=== PATIENT | female | born 1975 | race Caucasian/White ===

== ENCOUNTER 2025-03-16 20:29 | Inpatient (IN) ==
[2025-03-16] MEDS: ONDANSETRON 4 MG/2 ML VIAL IV ONE (21:29)
[2025-03-16 22:21] LABS: Basophils # (Auto) 0.01 K/mcL (0.00-0.30); Basophils % (Auto) 0.2 % (0.0-2.0); Eosinophils # (Auto) 0.02 K/mcL (0.00-0.70); Eosinophils % (Auto) 0.3 % (0.0-7.0); Hematocrit 31.5 % (34.1-44.9); Hemoglobin 8.9 g/dL (11.2-15.7); Lymphocytes # (Auto) 0.83 K/mcL (1.50-4.80); Lymphocytes % (Auto) 14.1 % (15.5-49.0); Mean Corpuscular HGB Conc 28.3 g/dL (31.0-36.0); Monocytes # (Auto) 0.50 K/mcL (0.10-0.90); Monocytes % (Auto) 8.5 % (1.0-12.0); Neutrophils % (Auto) 66.8 % (38.0-78.0); Platelet Count 72 K/mcL (140-440); RBC 3.55 M/mcL (3.59-5.38); WBC 5.9 K/mcL (4.5-11.0)
[2025-03-16 22:32] LABS: Thyroid Stimulating Hormone 8.42 uIU/mL (0.27-5.01)
[2025-03-16 22:41] LABS: ALT/SGPT 11 U/L (<40); AST/SGOT 11 U/L (<32); Albumin 2.6 gm/dL (3.2-5.2); Albumin/Globulin Ratio 0.7 (1.0-2.3); Alkaline Phosphatase 141 U/L (39-117); Anion Gap 10.0 (8.0-16.0); Bilirubin,Total 0.3 mg/dL (0.1-1.0); Blood Urea Nitrogen 45 mg/dL (6-20); Calcium 8.1 mg/dL (8.6-10.4); Carbon Dioxide 24 mmol/L (22-30); Chloride 98 mmol/L (96-108); Globulin 3.8 gm/dL (2.2-3.7); Glucose 470 mg/dL (70-105); Potassium 5.1 mmol/L (3.3-5.1); Sodium 132 mmol/L (133-145)
[2025-03-16] MEDS: INSULIN REGULAR, HUMAN 1 UNIT/0.01 ML UNIT SQ ONE (22:52)
[2025-03-17] MEDS: FUROSEMIDE 100 MG/10 ML VIAL IV ONE (00:44)
[2025-03-17] MEDS: DEXAMETHASONE 10 MG/ML VIAL IV ONE (00:45)
[2025-03-17] MEDS: OSELTAMIVIR PHOSPHATE 75 MG CAPSULE PO ONE (00:45)
[2025-03-17] MEDS ORDERED: DEXTROSE 50% 50 ML VIAL IV PRN (00:50)
[2025-03-17] MEDS ORDERED: DEXTROSE 31 GM ORAL.SUSP PO PRN ×2 (00:50→07:52)
[2025-03-17 03:21] LABS: Bacteria,Urine FEW /hpf (0); Bilirubin,Urine Negative (Negative); Color,Urine Yellow; Glucose,Urine (UA) 500 mg/dL (Negative); Ketones,Urine Negative (Negative); Leukocyte Esterase,Urine Trace /uL (Negative); Mucus,Urine FEW /hpf; PH,Urine 5.5 (5.0-9.0); Protein,Urine >=300 mg/dL (Negative); Specific Gravity,Urine 1.020 (1.000-1.035); Urobilinogen,Urine Normal
[2025-03-17] MEDS: INSULIN LISPRO 1 UNIT/0.01 ML UNIT SQ SCH ×2 (07:09→12:13)
[2025-03-17] MEDS ORDERED: SENNOSIDES 1 TABLET PO PRN (08:15)
[2025-03-17] MEDS ORDERED: MAGNESIUM SULFATE 2 GM/50 ML BAG IV PRN (08:15)
[2025-03-17] MEDS ORDERED: POTASSIUM CHLORIDE 40 MEQ in DEXTROSE 5% IN WATER 500 ML IV PRN (08:15)
[2025-03-17] MEDS ORDERED: METOCLOPRAMIDE 10 MG/2 ML VIAL IV PRN (08:15)
[2025-03-17] MEDS ORDERED: POTASSIUM CHLORIDE 20 MEQ TABLET PO PRN ×2 (08:15)
[2025-03-17] MEDS ORDERED: ONDANSETRON 4 MG/2 ML VIAL IV PRN (08:15)
[2025-03-17] MEDS ORDERED: POLYETHYLENE GLYCOL 3350 17 GM PACKET PO PRN (08:15)
[2025-03-17] MEDS ORDERED: PREGABALIN 100 MG CAPSULE PO SCH (09:00)
[2025-03-17] MEDS: PREGABALIN 100 MG CAPSULE PO SCH (09:06)
[2025-03-17] MEDS: BACLOFEN 10 MG TABLET PO PRN (09:06)
[2025-03-17] MEDS: MYCOPHENOLATE 250 MG CAPSULE PO SCH (09:06)
[2025-03-17] MEDS: ALBUMIN HUMAN 12.5 GM/50 ML VIAL IV SCH (09:07)
[2025-03-17] MEDS: METOLAZONE 2.5 MG TABLET PO SCH (09:07)
[2025-03-17] MEDS: METOPROLOL SUCCINATE 25 MG TAB.XL.24H PO SCH (09:07)
[2025-03-17] MEDS: DOCUSATE SODIUM 100 MG CAPSULE PO SCH (09:07)
[2025-03-17] MEDS: FLUTICASONE/SALMETEROL 250/50 INHALER #14 INH SCH (09:07)
[2025-03-17 11:27] LABS: Estimated Average Glucose(eAG) 289 mg/dL; Hemoglobin A1C 11.7 % Hgb (4.0-6.0)
[2025-03-17] MEDS: METOCLOPRAMIDE 10 MG TABLET PO SCH (12:13)
[2025-03-17 12:31] LABS: ALT/SGPT 9 U/L (<40); AST/SGOT 20 U/L (<32); Albumin 2.3 gm/dL (3.2-5.2); Albumin/Globulin Ratio 0.6 (1.0-2.3); Alkaline Phosphatase 108 U/L (39-117); Anion Gap 9.0 (8.0-16.0); Bilirubin,Direct < 0.2 mg/dL (0-0.3); Bilirubin,Total 0.3 mg/dL (0.1-1.0); Blood Urea Nitrogen 45 mg/dL (6-20); Calcium 8.0 mg/dL (8.6-10.4); Carbon Dioxide 24 mmol/L (22-30); Chloride 99 mmol/L (96-108); Globulin 3.8 gm/dL (2.2-3.7); Glucose 301 mg/dL (70-105); Phosphorous 5.7 mg/dL (2.5-4.5); Potassium 6.4 mmol/L (3.3-5.1); Sodium 132 mmol/L (133-145); Triglycerides 64 mg/dL (<150); Uric Acid 9.4 mg/dL (2.5-8.0)
[2025-03-17] MEDS: SODIUM ZIRCONIUM CYCLOSILICATE 10 GM PACKET PO SCH (13:22)
[2025-03-17] MEDS: DEXTROSE 50% 50 ML VIAL IV SCH (13:22)
[2025-03-17] MEDS: INSULIN REGULAR, HUMAN 1 UNIT/0.01 ML UNIT IV SCH (13:23)
[2025-03-17] MEDS: FUROSEMIDE 40 MG/4 ML VIAL IV SCH (15:56)
[2025-03-17] MEDS: METOCLOPRAMIDE 5 MG TABLET PO SCH (18:47)
[2025-03-17] MEDS ORDERED: MAGNESIUM HYDROXIDE 30 ML ORAL.SUSP PO PRN (18:49)
[2025-03-17] MEDS ORDERED: BISACODYL 10 MG SUPP.RECT PR PRN (18:49)
[2025-03-17 20:01] LABS: Potassium 5.6 mmol/L (3.3-5.1)
[2025-03-17] MEDS: FAMOTIDINE 20 MG TABLET PO SCH (21:20)
[2025-03-17] MEDS: INSULIN GLARGINE, HUMAN 1 UNIT/0.01 ML SQ SCH (21:30)
[2025-03-18] MEDS: ONDANSETRON 4 MG/2 ML VIAL IV PRN (04:24)
[2025-03-18 06:25] LABS: ALT/SGPT 8 U/L (<40); AST/SGOT 9 U/L (<32); Albumin 2.3 gm/dL (3.2-5.2); Albumin/Globulin Ratio 0.7 (1.0-2.3); Alkaline Phosphatase 95 U/L (39-117); Anion Gap 11.0 (8.0-16.0); Bilirubin,Direct < 0.2 mg/dL (0-0.3); Bilirubin,Total 0.3 mg/dL (0.1-1.0); Blood Urea Nitrogen 53 mg/dL (6-20); Calcium 8.1 mg/dL (8.6-10.4); Carbon Dioxide 24 mmol/L (22-30); Chloride 98 mmol/L (96-108); Globulin 3.5 gm/dL (2.2-3.7); Glucose 172 mg/dL (70-105); Phosphorous 6.2 mg/dL (2.5-4.5); Potassium 4.3 mmol/L (3.3-5.1); Sodium 133 mmol/L (133-145); Triglycerides 143 mg/dL (<150); Uric Acid 9.6 mg/dL (2.5-8.0)
[2025-03-18 07:47] LABS: Basophils # (Auto) 0.01 K/mcL (0.00-0.30); Basophils % (Auto) 0.2 % (0.0-2.0); Eosinophils # (Auto) 0.01 K/mcL (0.00-0.70); Eosinophils % (Auto) 0.2 % (0.0-7.0); Hematocrit 31.2 % (34.1-44.9); Hemoglobin 8.9 g/dL (11.2-15.7); Lymphocytes # (Auto) 0.84 K/mcL (1.50-4.80); Lymphocytes % (Auto) 19.5 % (15.5-49.0); Mean Corpuscular HGB Conc 28.5 g/dL (31.0-36.0); Monocytes # (Auto) 0.43 K/mcL (0.10-0.90); Monocytes % (Auto) 10.0 % (1.0-12.0); Neutrophils % (Auto) 62.7 % (38.0-78.0); Platelet Count 68 K/mcL (140-440); RBC 3.56 M/mcL (3.59-5.38); WBC 4.3 K/mcL (4.5-11.0)
[2025-03-18] MEDS: cefTRIAXone 1 GM VIAL IV SCH (09:01)
[2025-03-18] MEDS: SEVELAMER 800 MG TABLET PO SCH (09:05)
[2025-03-18] MEDS: INSULIN LISPRO 1 UNIT/0.01 ML UNIT SQ SCH (09:06)
[2025-03-18] MEDS: ALBUMIN HUMAN 12.5 GM/50 ML VIAL IV SCH (09:07)
[2025-03-18] MEDS: LEVOTHYROXINE 100 MCG TABLET PO SCH (10:36)
[2025-03-18] MEDS: NICOTINE 21 MG PATCH TOPICAL SCH (13:19)
[2025-03-18] MEDS: 0.9 % SODIUM CHLORIDE 10 ML SYRINGE IV PRN (17:39)
[2025-03-18] MEDS: IPRATROPIUM/ALBUTEROL 3 ML AMPUL.NEB NEB PRN (19:00)
[2025-03-19 06:31] LABS: ALT/SGPT 8 U/L (<40); AST/SGOT 10 U/L (<32); Albumin 2.5 gm/dL (3.2-5.2); Albumin/Globulin Ratio 0.7 (1.0-2.3); Alkaline Phosphatase 90 U/L (39-117); Anion Gap 10.0 (8.0-16.0); Bilirubin,Direct < 0.2 mg/dL (0-0.3); Bilirubin,Total 0.3 mg/dL (0.1-1.0); Blood Urea Nitrogen 57 mg/dL (6-20); Calcium 8.0 mg/dL (8.6-10.4); Carbon Dioxide 26 mmol/L (22-30); Chloride 100 mmol/L (96-108); Globulin 3.4 gm/dL (2.2-3.7); Glucose 114 mg/dL (70-105); Phosphorous 5.3 mg/dL (2.5-4.5); Potassium 4.4 mmol/L (3.3-5.1); Sodium 136 mmol/L (133-145); Triglycerides 132 mg/dL (<150); Uric Acid 9.6 mg/dL (2.5-8.0)
[2025-03-19 07:16] LABS: Basophils # (Auto) 0.02 K/mcL (0.00-0.30); Basophils % (Auto) 0.4 % (0.0-2.0); Eosinophils # (Auto) 0.03 K/mcL (0.00-0.70); Eosinophils % (Auto) 0.6 % (0.0-7.0); Hematocrit 28.6 % (34.1-44.9); Hemoglobin 8.2 g/dL (11.2-15.7); Lymphocytes # (Auto) 0.71 K/mcL (1.50-4.80); Lymphocytes % (Auto) 15.1 % (15.5-49.0); Mean Corpuscular HGB Conc 28.7 g/dL (31.0-36.0); Monocytes # (Auto) 0.33 K/mcL (0.10-0.90); Monocytes % (Auto) 7.0 % (1.0-12.0); Neutrophils % (Auto) 70.7 % (38.0-78.0); Platelet Count 65 K/mcL (140-440); RBC 3.27 M/mcL (3.59-5.38); WBC 4.7 K/mcL (4.5-11.0)
[2025-03-19] MEDS ORDERED: LEVOTHYROXINE 100 MCG TABLET PO SCH (07:30)
[2025-03-19] MEDS: ALBUMIN HUMAN 12.5 GM/50 ML VIAL IV SCH ×2 (09:50→16:28)
[2025-03-19] MEDS: POLYETHYLENE GLYCOL 3350 17 GM PACKET PO SCH (09:50)
[2025-03-19] MEDS: ALBUMIN HUMAN 12.5 GM/50 ML VIAL IV ONE (10:20)
[2025-03-19] MEDS: DEXTROSE 50% 50 ML VIAL IV PRN (12:14)
[2025-03-19] MEDS: INSULIN LISPRO 1 UNIT/0.01 ML UNIT SQ SCH (17:10)
[2025-03-19] MEDS: INSULIN GLARGINE, HUMAN 1 UNIT/0.01 ML SQ SCH (20:54)
[2025-03-20 07:48] LABS: Basophils # (Auto) 0.03 K/mcL (0.00-0.30); Basophils % (Auto) 0.6 % (0.0-2.0); Eosinophils # (Auto) 0.03 K/mcL (0.00-0.70); Eosinophils % (Auto) 0.6 % (0.0-7.0); Hematocrit 30.1 % (34.1-44.9); Hemoglobin 8.7 g/dL (11.2-15.7); Lymphocytes # (Auto) 0.69 K/mcL (1.50-4.80); Lymphocytes % (Auto) 13.7 % (15.5-49.0); Mean Corpuscular HGB Conc 28.9 g/dL (31.0-36.0); Monocytes # (Auto) 0.35 K/mcL (0.10-0.90); Monocytes % (Auto) 6.9 % (1.0-12.0); Neutrophils % (Auto) 69.3 % (38.0-78.0); Platelet Count 65 K/mcL (140-440); RBC 3.43 M/mcL (3.59-5.38); WBC 5.0 K/mcL (4.5-11.0)
[2025-03-20 07:56] LABS: ALT/SGPT 8 U/L (<40); AST/SGOT 13 U/L (<32); Albumin 2.8 gm/dL (3.2-5.2); Albumin/Globulin Ratio 0.8 (1.0-2.3); Alkaline Phosphatase 99 U/L (39-117); Anion Gap 9.0 (8.0-16.0); Bilirubin,Direct < 0.2 mg/dL (0-0.3); Bilirubin,Total 0.2 mg/dL (0.1-1.0); Blood Urea Nitrogen 62 mg/dL (6-20); Calcium 8.0 mg/dL (8.6-10.4); Carbon Dioxide 26 mmol/L (22-30); Chloride 99 mmol/L (96-108); Globulin 3.6 gm/dL (2.2-3.7); Glucose 293 mg/dL (70-105); Phosphorous 5.1 mg/dL (2.5-4.5); Potassium 4.9 mmol/L (3.3-5.1); Sodium 134 mmol/L (133-145); Triglycerides 103 mg/dL (<150); Uric Acid 9.6 mg/dL (2.5-8.0)
[2025-03-20] MEDS: ENOXAPARIN 40 MG/0.4 ML SYRINGE SQ SCH (08:28)
[2025-03-20] MEDS: ALBUMIN HUMAN 12.5 GM/50 ML VIAL IV ONE (08:47)
[2025-03-20 12:31] VITALS: TEMP 97; O2SAT 93
[2025-03-20] MEDS ORDERED: INSULIN GLARGINE, HUMAN 1 UNIT/0.01 ML SQ SCH (21:00)
== END 2025-03-20 12:35 | DRG 291 ==
LOC: ED 20:29 → ICU 20:29
PROVIDERS: ADMIT Internal Medicine; ATTEND Internal Medicine